=== PATIENT | female | born 1970 | race Caucasian/White ===

== ENCOUNTER → 2017-04-27 | Day surgery (SDC) | payer OTHER ==
[~2017-04-27] VITALS: Ht 165.1 cm; Wt 102.3 kg
[~2017-04-27] MED LIST: 0.9% Sodium Chloride 1,000 ML IV SCH; ALPR0.5T PO; AZEL137S11 NS; BUPR300T51 PO; CETI10CA PO; FLUT15.88 NS; L. A1CAP7 PO; Lactated Ringer's 1,000 ML IV ONE; Lactated Ringer's 1,000 ML IV SCH; METR500T PO; MONT10TA23 PO; MetoCLOpramide 5 mg/mL 2 mL Inj IVPUSH PRN; OMEP40CA36 PO; Ondansetron 2 mg/mL 2 mL Inj IVPUSH PRN; PRAZ5CAP3 PO; Propofol 10 mg/mL 20 mL Inj ONE; SERT100T PO; Sodium Chloride LOK Flush 10 mL Syringe IV PRN; fentaNYL-PF 50 mCg/mL 2 mL Inj IVPUSH PRN; fentaNYL-PF 50 mCg/mL 2 mL Inj ONE
[2017-04-27 10:10] VITALS: BP 121/74; PULSE 81; RESP 16; O2SAT 96
[2017-04-27 11:20] VITALS: BP 110/73; PULSE 88; RESP 11; O2SAT 94
--- NOTE | 2017-04-27 11:22 | PCM.HPANE ---
Patient Data Surgeon Admitting Provider: Attending Provider:Master Bishop MD Primary Care Physician:Delfina Baptiste PA-C Other Provider: Reason for Visit Diarrhea/Epigastric Pain Ht/WT & BMI Body Mass Index Allergies Coded Allergies: No Known Allergies (Verified , 03/06/05) Past Anesthesia History Anesthesia History: Positive for:: Anesthesia Reactions (hypotensive), Denies:: Abnormal Airway, Difficult Intubation, Fam Anesthesia Reaction, Fam Malignant Hypertherm, Malignant Hyperthermia MRSA MRSA: No Medications Reported Medications Cetirizine HCl (Zyrtec)10 Mg [id number] Mg PO HS #30 CAPSULE Ref 0 04/25/17 Sertraline HCl (Zoloft)100 Mg Zwxryz956 Mg PO DAILY 30 Days Ref 0 04/25/17 Alprazolam (Xanax)0.5 Mg Tablet0.5 Mg PO DAILY Ref 0 04/25/17 Bupropion ER (Wellbutrin XL)300 Mg Tab.er.45f192 Mg PO DAILY Ref 0 04/25/17 L. Acidophilus/Bifid. Animalis (Probiotic 5 Billion Cell Cap)1 Each Cap.[email or web address] Each PO DAILY 04/25/17 Prazosin 5 Mg Capsule5 Mg PO BID 04/25/17 Omeprazole 40 Mg Capsule.dr40 Mg PO DAILY Ref 0 04/25/17 Montelukast 10 Mg Eczuul97 Mg PO HS Ref 0 04/25/17 Fluticasone Propionate 50 Mcg/Actuation Dennis.susp2 Ml NS DAILY 04/25/17 Metronidazole (Flagyl)500 Mg Tpkhqd159 Mg PO Q8H 04/25/17 Azelastine HCl 137 Mcg/0.137 Ml Dennis.[email or web address] Dennis NS BID 04/25/17 History History of ENT Problems?: No HEENT History: Denies:: Abnormal Airway Difficult Intubation Hearing Problem Denture Type: None Teeth Condition: Within Normal Limits Hx of Heart Problems?: No Cardiovascular History: Denies:: AICD Abdominal Aortic Aneurism Atrial Fibrillation Cardiac Surgery Chest Pain Congestive Heart Failure Coronary Artery Disease Edema Heart Murmur Hypertension Irregular Heartbeat Pacemaker Peripheral Vascular Rheumatic Fever Thrombophlebitis Valvular Heart Disease Other Cardiac History: hx of intermittent heart murmur Hx of Respiratory Problem?: No Respiratory History: Denies:: Asthma COPD Chest Surgery Cough Dyspnea Emphysema Hemoptysis Oxygen Administration Pneumonia Pulmonary Embolism Tuberculosis Use of C-PAP Machine Use of Inhalers / NEBS Hx Neurologic Problems?: No Neurological History: Denies:: CVA Hx of GI Problems?: Yes Hx of Problems?: No HX of Peritoneal Dialysis: No Female Hx: Denies:: Currently Endometriosis Pelvic Inflammatory Problems with Breasts? Hx Musculoskeletal Problems?: No Musculoskeletal History: Denies:: Fibromyalgia Joint Replacement Psycho Social History: Positive for:: Anxiety Hx Depression Hx Surgeries?: Yes (lap divina, hysto) Hx Any Other Health Problems?: Yes Hx Alcohol Use: Yes (rare) Stop/Bang Treated for Sleep Apnea?: No Do You Have a CPAP Machine?: No S-Snoring: Do You Snore Loudly: No T-Tired: feel tired, fatigued: No O-Obsered: Observed not breath: No P-Blood Pressure: treated: No B- Body Mass Index > 35 kg/m2: Yes A- Age over 50: No N- Neck Large Circumference: No G- Gender Male: No GEE Total Score: 1 Risk Assessment Category Category 1A: Patient has history of documented sleep apnea, and HAS NOT received any narcotic, sedative or anesthesia administration during this stay. Category 1B: Patient has history of documented sleep apnea, and HAS received any narcotic , sedative or anesthesia administration during this stay Category 2: Patient has SUSPECTED Obstructive Sleep Apnea, and HAS received any narcotic , sedative or anesthesia administration during this stay. Category 3: Patient has SUSPECTED Obstructive Sleep Apnea and HAS NOT received narcotic, sedative or anesthesia administration during this stay. Category 4: Outpatient in Procedural Areas with known sleep apnea or who screen positive for High Risk via the STOP/BANG questionnaire. Exam Exam Vital Signs Vital Signs Date Time Temp Pulse Resp B/P Pulse Ox O2 Delivery O2 Flow Rate FiO2 04/27/17 10:10 36.8 81 16 121/74 96 Room Air General Appearance: Alert HEENT/AIRWAY: MP 1, Neck Movement (FROM, 3 FB) Lungs: Clear to Auscultation Heart: Regular Rate/Rhythm Plan Impression Patient chart reviewed, patient interviewed and anesthestic plan with risks, benefits, and alternatives discussed, and informed consent obtained. NPO per Anesth. Guidelines: Yes ASA Physical Status: ASA2 Mod Systemic Disease Anesthetic Plan: MAC Bene/Risks/Altern/Consents: Yes HP Complete Prior to Induction: Yes Chandu Mejía MD Apr 27, 2017 10:34
[2017-04-27 11:25] VITALS: BP 116/84; PULSE 90; RESP 14; O2SAT 96
[2017-04-27 11:31] VITALS: BP 105/86; PULSE 76; RESP 14; O2SAT 97
[2017-04-27 11:41] VITALS: BP 132/78; PULSE 78; RESP 14; O2SAT 96
--- NOTE | 2017-04-27 13:52 | ENDO ---
[address] [address] ENDOSCOPY PROCEDURE PATIENT: KELLEN CHAN : 1970 MR#: [id number] ADMIT: 04/27/2017 JOB ID: [id number] TYPE OF OPERATION: Esophagogastroduodenoscopy with biopsy and colonoscopy with biopsy. PREOPERATIVE DIAGNOSIS(ES): 1. Epigastric pain. 2. Diarrhea. POSTOPERATIVE DIAGNOSIS(ES): 1. Normal upper endoscopy, status post biopsy. 2. Mild sigmoid diverticulosis. ANESTHESIA: Monitored anesthesia care. COMPLICATIONS: None. BLOOD LOSS: Minimal. DESCRIPTION OF PROCEDURE: After the risks benefits were explained to the patient, informed consent was obtained. After anesthesia was administered, the upper endoscope was inserted into mouth and intubated through the esophagus, stomach, second portion of duodenum. Mucosa carefully examined. After the procedure was done, the scope was withdrawn and the procedure terminated. The colonoscope was then inserted per rectum to the terminal ileum and the mucosa carefully examined. Prep of the patient was excellent. After the procedure was done, the scope was withdrawn and the procedure terminated. FINDINGS: Upon inspection of the esophagus, the esophagus was normal, without masses, ulcers, or lesions. Z-line located 35 cm from incisors. Upon entering the stomach, the stomach was also normal, without masses, ulcers, or lesions. Retroflexion revealed a normal duodenal bulb. First and second portion were normal. Biopsies taken at duodenum, antrum, and body of stomach. Upon inspection of the anus, no masses, hemorrhoids, ulcers, or fissures are seen throughout the entire examination. There is mild sigmoid diverticulosis. No masses or ulcers were seen. Biopsies taken of the terminal ileum and random colon. Retroflexion was normal. IMPRESSION: 1. Mild sigmoid diverticulosis. 2. Normal upper endoscopy status post biopsy. RECOMMENDATION: Await pathology results. High-fiber diet. Follow up in GI Clinic as needed.
--- NOTE | 2017-04-30 11:08 | PATH ---
SURGICAL PATHOLOGY Attending Physician:Master Bishop MD CASE STATUS: Signed Out PATIENT NAME: KELLEN CHAN PID: [id number] : 1970 DATE COLLECTED:04/27/2017 21:27 SPECIMEN: 1: Duodenum, Biopsy 2: Stomach, Antrum, Biopsy 3: Gastric, Biopsy 4: Ileum, Biopsy 5: Colon, Biopsy CLINICAL HISTORY: 1). DUODENAL BIOPSY 2). ANTRUM BIOPSY 3). GASTRIC BODY BIOPSY 4). TERMINAL ILEUM BIOPSY 5). RANDOM COLON BIOPSY FINAL DIAGNOSIS: 1. Duodenal Biopsy: Duodenal mucosa with no diagnostic alterations. Negative for inflammation, celiac, dysplasia and malignancy. 2. Antrum Biopsy: Gastric antral mucosa with no diagnostic alterations. Negative for Helicobacter organisms on H&E stains. Negative for intestinal metaplasia. Negative for dysplasia or malignancy. 3. Gastric Body Biopsy: Gastric body mucosa with no diagnostic alterations. Negative for Helicobacter organisms on H&E stains. Negative for intestinal metaplasia. Negative for dysplasia or malignancy. 4. Terminal Ileum Biopsy: Ileal mucosa with no diagnostic alterations. Negative for inflammation, granulomas, dysplasia and malignancy. 5. Random Colon Biopsy: Colonic mucosa with no diagnostic alterations. Negative for inflammation, dysplasia and malignancy. ICD10: R10.9 GROSS DESCRIPTION: Received five formalin-filled containers each labeled with the patient' s name. 1. Received in formalin, labeled with the patient' s name and "duod", are two fragments of heaton, soft tissue ranging from 0.2 x 0.1 x 0.1 cm to 0.4 x 0.2 x 0.1 cm. The fragments are totally submitted in cassette 1A. 2. Received in formalin, labeled with the patient' s name and "antrum", are two fragments of heaton, soft tissue ranging from 0.2 x 0.1 x 0.1 cm to 0.7 x 0.2 x 0.1 cm. The fragments are totally submitted in cassette 2A. 3. Received in formalin, labeled with the patient' s name and "body", is one fragment of heaton, soft tissue measuring 0.5 x 0.2 x 0.2 cm. The fragment is totally submitted in cassette 3A. 4. Received in formalin, labeled with the patient' s name and "TI", is one fragment of heaton, soft tissue measuring 0.5 x 0.2 x 0.2 cm. The fragment is totally submitted in cassette 4A. 5. Received in formalin, labeled with the patient' s name and "random", are multiple fragments of heaton, soft tissue ranging from 0.1 x 0.1 x 0.1 cm to 0.5 x 0.3 x 0.2 cm. The fragments are totally submitted in cassette 5A. ([id number]) MICRO DESCRIPTION: Please see diagnosis. ICD-9 CODES: CPT CODES: 1: 27543 2: 64597 3: 65680 4: 26654 5: 79155 Electronically Signed Out Archana Alegria MD [facility] [address] [place] [address] Technical component performed at [facility], [address], [place], [address]
== END | disposition home or self-care (01) ==
LOC: END 01:04
PROVIDERS: ATTEND Internal Medicine Gastroenterology
DX: R19.7 Diarrhea, unspecified (principal); R10.13 Epigastric pain; K57.30 Diverticulosis of large intestine without perforation or abscess without bleeding
CPT/HCPCS: 43239; 45380; J2250; J2704; J3010; J7120